=== PATIENT | female | born 1975 | race Caucasian/White ===

== ENCOUNTER 2017-10-04 10:27 | Emergency (ER) | payer OTHER ==
[~2017-10-04] VITALS: Ht 170.2 cm; Wt 83.9 kg
== END 2017-10-04 16:12 | disposition home or self-care (01) ==
LOC: ER 10:27
DX: M25.562 Pain in left knee (principal)

== ENCOUNTER 2019-04-06 09:13 | Emergency (ER) | payer OTHER ==
[~2019-04-06] VITALS: Ht 170.2 cm; Wt 83.9 kg
== END 2019-04-06 11:20 | disposition home or self-care (01) ==
LOC: ER 09:13
DX: M25.572 Pain in left ankle and joints of left foot (principal)